=== PATIENT | male | born 1945 | race African-American/Black ===

== ENCOUNTER 2023-08-03 16:18 | Emergency (ER) | payer MEDICARE ==
--- NOTE | 2023-08-03 16:29 | ED Physician Documentation ---
PD HPI DYSPNEA - Stated complaint Stated Complaint: SOA - History obtained from History obtained from: Patient - History of Present Illness Timing - onset: How many days ago (2-3) Timing - onset during: Light activity Timing - duration: Days (2-3) Timing - details: Gradual onset, Still present Inciting event(s): URI (has had cough, congestion, malaise, and feeling of weakness for 2-3 days, with cough and wheezing much increased over baseline. Has home oxygen to use at night, and has been using it all day. Using MDI often but ran out of his ALbuterol. Had nebulizer at home in [place]. Is here visiting.). No: Out of meds Improved by: O2, Inhaler/neb (untilr an out of Albuterol.) Similar symptoms before: Diagnosis (has had COPD exac with URIs in the past.) Recently seen: Not recently seen Review of Systems Constitutional: reports: Chills, Myalgias. denies: Fever Nose: reports: Rhinorrhea / runny nose, Congestion Throat: denies: Sore throat Cardiac: denies: Chest pain / pressure, Palpitations Respiratory: reports: Dyspnea, Cough, Wheezing GI: denies: Abdominal Pain, Vomiting, Diarrhea Neurologic: reports: Generalized weakness. denies: Focal weakness, Altered mental status, Headache PD PAST MEDICAL HISTORY - Past Medical History Cardiovascular: Hypertension (usually controlled with his meds. Had not had meds this morning. ) Respiratory: COPD (night oxygen and PRN. 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 ) Neuro: None - Present Medications Home Medications: Ambulatory Orders Medication Instructions Recorded Confirmed Albuterol Sulf [Ventolin Hfa 2 - 3 puffs INH Q4HR PRN #1 each 08/03/23 Inhaler] Amoxicillin 500 mg PO TID #15 cap 08/03/23 Ipratropium [Atrovent] 2 puffs INH Q6H #12.9 gm 08/03/23 dexAMETHasone [Decadron] 4 mg PO DAILY #7 tablet 08/03/23 - Allergies Allergies/Adverse Reactions: Allergies Allergy/AdvReac Type Severity Reaction Status Date / Time No Known Drug Allergies Allergy Verified 08/03/23 16:36 PD ED PE NORMAL - Vitals Vital signs reviewed: Yes - General General: Alert and oriented X 3, Well developed/nourished, Other (having work of breathing and partial sentence dyspnea on first presentation/exam. Very noticable wheezing. ) - HEENT HEENT: Pharynx benign - Neck Neck: Supple, no meningeal sign, No adenopathy - Cardiac Cardiac: RRR, No murmur - Respiratory Respiratory: No: Clear bilaterally (no coarse sounds. Diffuse hholoexpiratory wheezing. ) - Abdomen Abdomen: Soft, Non tender - Extremities Extremities: No edema, No calf tenderness / cord - Neuro Neuro: No motor deficit, Normal speech Results - Vitals Vitals: Vital Signs - 24 hr 08/03/23 08/03/23 08/03/23 16:29 16:45 16:59 Temperature 36.1 C L Heart Rate 95 89 86 Respiratory 32 H 19 28 H Rate Blood Pressure 245/121 H O2 Saturation 95 95 If not protocol 2 2 : Oxygen Flow, liters/minute 08/03/23 08/03/23 08/03/23 17:11 17:36 18:44 Temperature Heart Rate 84 83 87 Respiratory 21 20 16 Rate Blood Pressure 173/80 H O2 Saturation 100 If not protocol 2 2 2 : Oxygen Flow, liters/minute 08/03/23 19:11 Temperature Heart Rate 82 Respiratory 26 H Rate Blood Pressure 181/88 H O2 Saturation 96 If not protocol : Oxygen Flow, liters/minute Oxygen O2 Source Nasal cannula Oxygen Flow Rate 2 - Labs Labs: Laboratory Tests 08/03/23 08/03/23 08/03/23 16:41 16:41 17:00 WBC 9.1 RBC 5.57 Hgb 14.9 Hct 46.5 MCV 83.5 MCH 26.8 L MCHC 32.0 RDW 15.7 H Plt Count 215 MPV 8.5 Neut # (Auto) 6.8 H Lymph # (Auto) 1.1 L [place] # (Auto) 1.1 H Eos # (Auto) 0.1 Baso # (Auto) 0.0 Absolute Nucleated RBC 0.00 Nucleated RBC % 0.0 Sodium Potassium Chloride Carbon Dioxide Anion Gap BUN Creatinine Estimated GFR (MDRD) Glucose Calcium Magnesium Total Bilirubin AST ALT Alkaline Phosphatase B-Natriuretic Peptide 79 Total Protein Albumin Globulin Albumin/Globulin Ratio Lipase Nasal Adenovirus (PCR) NOT DETECTED Nasal B. parapertussis DNA (PCR) NOT DETECTED Nasal Coronavir 229E PCR NOT DETECTED Nasal Coronavir HKU1 PCR NOT DETECTED Nasal Coronavir NL63 PCR NOT DETECTED Nasal Coronavir OC43 PCR DETECTED A Nasal Enterovir/Rhinovir PCR NOT DETECTED Nasal Influenza B PCR NOT DETECTED Nasal Influenza A PCR NOT DETECTED Nasal Parainfluen 1 PCR NOT DETECTED Nasal Parainfluen 2 PCR NOT DETECTED Nasal Parainfluen 3 PCR NOT DETECTED Nasal Parainfluen 4 PCR NOT DETECTED Nasal RSV (PCR) NOT DETECTED Nasal B.pertussis DNA PCR NOT DETECTED Nasal C.pneumoniae (PCR) NOT DETECTED Ahmet Human Metapneumo PCR NOT DETECTED Nasal M.pneumoniae (PCR) NOT DETECTED Nasal SARS-CoV-2 (PCR) NOT DETECTED 08/03/23 17:16 WBC RBC Hgb Hct MCV MCH MCHC RDW Plt Count MPV Neut # (Auto) Lymph # (Auto) [place] # (Auto) Eos # (Auto) Baso # (Auto) Absolute Nucleated RBC Nucleated RBC % Sodium 139 Potassium 4.0 Chloride 100 L Carbon Dioxide 32 Anion Gap 7.0 BUN 14 Creatinine 0.9 Estimated GFR (MDRD) 99 Glucose 104 Calcium 9.1 Magnesium 1.9 Total Bilirubin 0.9 AST 12 ALT 13 Alkaline Phosphatase 66 B-Natriuretic Peptide Total Protein 7.3 Albumin 4.3 Globulin 3.0 Albumin/Globulin Ratio 1.4 Lipase 17 Nasal Adenovirus (PCR) Nasal B. parapertussis DNA (PCR) Nasal Coronavir 229E PCR Nasal Coronavir HKU1 PCR Nasal Coronavir NL63 PCR Nasal Coronavir OC43 PCR Nasal Enterovir/Rhinovir PCR Nasal Influenza B PCR Nasal Influenza A PCR Nasal Parainfluen 1 PCR Nasal Parainfluen 2 PCR Nasal Parainfluen 3 PCR Nasal Parainfluen 4 PCR Nasal RSV (PCR) Nasal B.pertussis DNA PCR Nasal C.pneumoniae (PCR) Ahmet Human Metapneumo PCR Nasal M.pneumoniae (PCR) Nasal SARS-CoV-2 (PCR) - Rads (name of study) chest xray Relevant Findings:: Prelim report reviewed, EMP independent interpretation of test (no infiltrates nor acute process) PD Medical Decision Making - ED course Complexity details: re-evaluated patient (The patient is much more comfortable talking and breathing after 3 treatments. He still has audible wheezing and auscultated a wheezing. He states he wheezes often. He would like to try going home and will return if need be. He does have oxygen at home available.) Departure - Departure Disposition: Home, Self Care Clinical Impression: Dyspnea, Acute exacerbation of COPD with asthma, Other coronavirus as the cause of diseases classified elsewhere Condition: Stable Record reviewed to determine appropriate education?: Yes Instructions: ED URI Viral W Wheezing Prescriptions: Albuterol Sulf [Ventolin Hfa Inhaler] 2 - 3 puffs INH Q4HR PRN #1 each PRN Reason: Shortness Of Air/Wheezing Amoxicillin 500 mg PO TID #15 cap Ipratropium [Atrovent] 2 puffs INH Q6H #12.9 gm dexAMETHasone [Decadron] 4 mg PO DAILY #7 tablet Comments: Use the albuterol inhaler 2 to 3 puffs 4 times daily regularly for the next several days to week. You could add ipratropium inhaler as well for different effects to help with the wheezing. Decadron steroid daily for the next week. Your testing positive for a non-COVID coronavirus. This likely will cause a flareup of your COPD for the duration of the illness which commonly is 5 or 6 days. There may be some increased wheezing and coughing for a couple weeks after that as well. Even though this is a viral illness, given your underlying COPD there is still a setting for use of an antibiotic as there could be some flare of colonization of bacteria as well. I sent your prescriptions to the [facility] pharmacy in [place]. Return to the ER if worsening despite the above treatments. Continue with your available oxygen at home at 2 L nasal cannula. Follow-up with your primary care. Forms: PCP List Discharge Date/Time: 08/03/23 19:12
[2023-08-03] MEDS: IPRATROPIUM/ALBUTEROL 3 ML NEB INH STA ×2 (16:57→18:44)
[2023-08-03] MEDS: DEXAMETHASONE 10 MG/ML VIAL IVP STA (17:02)
[2023-08-03 17:05] LABS: BASOPHILS % (AUTO) 0.3 %; EOSINOPHILS # (AUTO) 0.1 10^3/uL (0.0-0.7); EOSINOPHILS % (AUTO) 1.3 %; HCT - HEMATOCRIT 46.5 % (42.0-52.0); HGB - HEMOGLOBIN 14.9 g/dL (14.0-18.0); LYMPHOCYTES # (AUTO) 1.1 10^3/uL (1.5-3.5); LYMPHOCYTES % (AUTO) 11.6 %; MEAN CORPUSCULAR HEMOGLOBIN 26.8 pg (27.0-31.0); MEAN CORPUSCULAR VOLUME 83.5 fL (80.0-94.0); MEAN PLATELET VOLUME 8.5 fL (7.4-11.4); MONOCYTES # (AUTO) 1.1 10^3/uL (0.0-1.0); MONOCYTES % (AUTO) 11.7 %; NEUTROPHILS # (AUTO) 6.8 10^3/uL (1.5-6.6); NEUTROPHILS % (AUTO) 74.8 %; PLT - PLATELET COUNT 215 10^3/uL (130-450); RED BLOOD COUNT 5.57 10^6/uL (4.70-6.10); RED CELL DISTRIBUTION WIDTH 15.7 % (12.0-15.0); WHITE BLOOD COUNT 9.1 x10^3/uL (4.8-10.8)
--- NOTE | 2023-08-03 17:10 | XRAY Report ---
PROCEDURE: Chest 1V INDICATIONS: chest pain TECHNIQUE: One view of the chest was acquired. COMPARISON: None. FINDINGS: Surgical changes and devices: None. Lungs and pleura: No pleural effusions or pneumothorax. Mild pulmonary vascular congestion. No defi nite focal infiltrate. Mediastinum: Mediastinal contours appear normal. Heart size is normal. Bones and chest wall: No suspicious bony lesions. Overlying soft tissues appear unremarkable. IMPRESSION: Mild congestion. No focal infiltrate, pleural effusion or pneumothorax. Reviewed by: Taran Knapp MD on 08/03/2023 5:09 PM PDT Approved by: Taran Knapp MD on 08/03/2023 5:09 PM PDT Station ID: [id number]
[2023-08-03 17:33] LABS: MAGNESIUM 1.9 mg/dL (1.7-2.3)
[2023-08-03] MEDS: ALBUTEROL NEB 2.5 MG/3 ML INH STA (17:34)
[2023-08-03 17:39] LABS: ALBUMIN 4.3 g/dL (3.2-5.5); ALBUMIN/GLOBULIN RATIO 1.4 (1.0-2.2); BILIRUBIN,TOTAL 0.9 mg/dL (0.2-1.0); CALCIUM 9.1 mg/dL (8.5-10.3); CREATININE 0.9 mg/dL (0.6-1.3); TOTAL PROTEIN 7.3 g/dL (6.4-8.9)
[2023-08-03 18:13] LABS: CORONAVIRUS 229E-RESP PCR NOT DETECTED; CORONAVIRUS HKU1-RESP PCR NOT DETECTED; CORONAVIRUS NL63-RESP PCR NOT DETECTED; CORONAVIRUS OC43-RESP PCR DETECTED; HUMAN METAPNEUMOVIRUS NOT DETECTED; INFLUENZA A- RESP PCR PANEL NOT DETECTED; RHINOVIRUS/ENTEROVIRUS NOT DETECTED; SARS-CoV-2 -RESP PCR PANEL NOT DETECTED
[2023-08-03 18:14] LABS: B. PARAPERTUSSIS- RESP PCR PAN NOT DETECTED; B. PERTUSSIS- RESP PCR PANEL NOT DETECTED; C. PNEUMONIAE- RESP PCR PANEL NOT DETECTED; INFLUENZA B - RESP PCR PANEL NOT DETECTED; M. PNEUMONIAE- RESP PCR PANEL NOT DETECTED; PARAINFLUENZA VIRUS 1 NOT DETECTED; PARAINFLUENZA VIRUS 2 NOT DETECTED; PARAINFLUENZA VIRUS 3 NOT DETECTED; PARAINFLUENZA VIRUS 4 NOT DETECTED; RSV- RESP PCR PANEL NOT DETECTED
[2023-08-03 19:15] VITALS: BP 181/88; O2SAT 96
== END 2023-08-03 19:12 | disposition home or self-care (01) ==
LOC: ED 16:18
DX: J44.1 Chronic obstructive pulmonary disease with (acute) exacerbation (principal); B34.2 Coronavirus infection, unspecified; I10 Essential (primary) hypertension; Z99.81 Dependence on supplemental oxygen; Z79.899 Other long term (current) drug therapy
CPT/HCPCS: 36415; 80053; 83690; 83735; 83880; 85025; 87633; 93005; 94640; 94664; 96374; 99284

== ENCOUNTER 2023-11-12 21:18 | Emergency (ER) | payer MEDICARE ==
--- NOTE | 2023-11-12 21:34 | ED Physician Documentation ---
PD HPI DYSPNEA - Stated complaint Stated Complaint: SOA - Chief complaint Chief Complaint: Resp - History obtained from History obtained from: Patient - Additional information Additional information: HPI from patient. Patient says he has COPD. Patient complains of dyspnea/shortness of breath worsening for the past few hours. Unclear as to when he started to feel worse than his baseline. For example, when asked, she felt at his baseline yesterday, he says he did not. When asked when his shortness of breath seem to become worse than usual, he says "I am always short of breath". Similar responses with coughing; patient says he has been having a dry/nonproductive cough worsening with past 3 hours, but again responds with "I am always coughing" (per patient) when asked when it for started. Patient has COPD. He was treated and released from this emergency department 3 months ago for similar presentation. I asked patient if he is currently taking steroids, and he says he takes prednisone. When I ask if he knows his dose, he tells me "check the chart". Utilizing [facility], the most recent prescription filled for prednisone that I see in these records is prednisone 20 mg tablets, 10 tablets for a 10-day supply that was filled on 10/24/2023. Patient denies chest pain, denies leg swelling. Review of Systems Constitutional: denies: Fever Cardiac: denies: Chest pain / pressure, Palpitations, Pedal edema Respiratory: reports: Dyspnea, Cough, Wheezing. denies: Hemoptysis GI: reports: Reviewed and negative Musculoskeletal: denies: Extremity swelling PD PAST MEDICAL HISTORY - Past Medical History Cardiovascular: Hypertension Respiratory: COPD Neuro: None - Past Surgical History Past Surgical History: Yes - Present Medications Home Medications: Ambulatory Orders Medication Instructions Recorded Confirmed Albuterol Sulf [Ventolin Hfa 2 - 3 puffs INH Q4HR PRN #1 each 08/03/23 Inhaler] Amoxicillin 500 mg PO TID #15 cap 08/03/23 Ipratropium [Atrovent] 2 puffs INH Q6H #12.9 gm 08/03/23 dexAMETHasone [Decadron] 4 mg PO DAILY #7 tablet 08/03/23 Albuterol Sulf [Ventolin Hfa 1 - 2 puffs INH Q4HR PRN #1 each 11/13/23 Inhaler] Azithromycin [Zithromax] 250 mg PO DAILY #4 tablet 11/13/23 predniSONE [Deltasone] 10 mg PO [id number] #42 tab 11/13/23 - Allergies Allergies/Adverse Reactions: Allergies Allergy/AdvReac Type Severity Reaction Status Date / Time No Known Drug Allergies Allergy Verified 11/12/23 21:22 - Social History Does the pt smoke?: No Smoking Status: Never smoker Does the pt drink ETOH?: No Does the pt have substance abuse?: No - Immunizations Immunizations are current?: Yes PD ED PE NORMAL - Vitals Vital signs reviewed: Yes - General General: Alert and oriented X 3, Well developed/nourished, Other (tachypneic, speaking in full sentences but becomes dyspneic towards the end of sentences. occasionally has to parse longer sentences) - Cardiac Cardiac: RRR, No murmur - Abdomen Abdomen: Soft, Non tender PD ED PE EXPANDED - Respiratory Respiratory: Wheezing (diffuse expiratory wheezing) Results - Vitals Vitals: Oxygen O2 Source Nasal cannula Oxygen Flow Rate 2 - Labs Labs: Laboratory Tests 11/12/23 11/12/23 11/12/23 21:35 21:35 21:35 WBC 8.5 RBC 5.72 Hgb 15.1 Hct 47.2 MCV 82.5 MCH 26.4 L MCHC 32.0 RDW 15.6 H Plt Count 275 MPV 8.6 Neut # (Auto) 5.1 Lymph # (Auto) 2.0 Jack # (Auto) 1.0 Eos # (Auto) 0.3 Baso # (Auto) 0.1 Absolute Nucleated RBC 0.00 Nucleated RBC % 0.0 Sodium 140 Potassium 4.0 Chloride 101 Carbon Dioxide 32 Anion Gap 7.0 BUN 17 Creatinine 0.9 Estimated GFR (MDRD) 99 Glucose 100 Calcium 9.9 Total Bilirubin 0.5 AST 13 ALT 10 Alkaline Phosphatase 73 B-Natriuretic Peptide 20 Total Protein 7.9 Albumin 4.8 Globulin 3.1 Albumin/Globulin Ratio 1.5 Lipase 41 Nasal Adenovirus (PCR) Nasal B. parapertussis DNA (PCR) Nasal Coronavir 229E PCR Nasal Coronavir HKU1 PCR Nasal Coronavir NL63 PCR Nasal Coronavir OC43 PCR Nasal Enterovir/Rhinovir PCR Nasal Influenza B PCR Nasal Influenza A PCR Nasal Parainfluen 1 PCR Nasal Parainfluen 2 PCR Nasal Parainfluen 3 PCR Nasal Parainfluen 4 PCR Nasal RSV (PCR) Nasal B.pertussis DNA PCR Nasal C.pneumoniae (PCR) Ahmet Human Metapneumo PCR Nasal M.pneumoniae (PCR) Nasal SARS-CoV-2 (PCR) 11/12/23 22:48 WBC RBC Hgb Hct MCV MCH MCHC RDW Plt Count MPV Neut # (Auto) Lymph # (Auto) Jack # (Auto) Eos # (Auto) Baso # (Auto) Absolute Nucleated RBC Nucleated RBC % Sodium Potassium Chloride Carbon Dioxide Anion Gap BUN Creatinine Estimated GFR (MDRD) Glucose Calcium Total Bilirubin AST ALT Alkaline Phosphatase B-Natriuretic Peptide Total Protein Albumin Globulin Albumin/Globulin Ratio Lipase Nasal Adenovirus (PCR) NOT DETECTED Nasal B. parapertussis DNA (PCR) NOT DETECTED Nasal Coronavir 229E PCR NOT DETECTED Nasal Coronavir HKU1 PCR NOT DETECTED Nasal Coronavir NL63 PCR NOT DETECTED Nasal Coronavir OC43 PCR NOT DETECTED Nasal Enterovir/Rhinovir PCR NOT DETECTED Nasal Influenza B PCR NOT DETECTED Nasal Influenza A PCR NOT DETECTED Nasal Parainfluen 1 PCR NOT DETECTED Nasal Parainfluen 2 PCR NOT DETECTED Nasal Parainfluen 3 PCR NOT DETECTED Nasal Parainfluen 4 PCR NOT DETECTED Nasal RSV (PCR) NOT DETECTED Nasal B.pertussis DNA PCR NOT DETECTED Nasal C.pneumoniae (PCR) NOT DETECTED Ahmet Human Metapneumo PCR NOT DETECTED Nasal M.pneumoniae (PCR) NOT DETECTED Nasal SARS-CoV-2 (PCR) NOT DETECTED - Rads (name of study) chest xray Relevant Findings:: Prelim report reviewed, See rad report PD Medical Decision Making - ED course Complexity details: reviewed old records (reviewed ED record from August 2023 visit ([facility])), reviewed results, re-evaluated patient, considered differential, d/w patient ED course: Unremarkable CBC, normal ER abdominal panel and BNP. CXR with mild right infrahilar opacity, will cover possible early pneumonia with azithromycin (500mg in ED, rx for 250 QD x 4 days). Respiratory PCR panel negative for viruses tested on this panel. Given 125mg IV solumedrol, duoneb and albuterol neb. On reevaluation, he reports feeling much improved and says he feels ready to go home. Reexamination of lungs (stethoscopic auscultation) reveals improved air movement and only end-expiratory wheezing bilaterally. Results d/w patient, return precautions reviewed. Also provided with prescription for albuterol MDI and 10-day tapering course of prednisone Departure - Departure Disposition: 01 Home, Self Care Clinical Impression: COPD exacerbation Condition: Good Instructions: ED COPD Flare Prescriptions: Albuterol Sulf [Ventolin Hfa Inhaler] 1 - 2 puffs INH Q4HR PRN #1 each PRN Reason: Shortness Of Air/Wheezing predniSONE [Deltasone] 10 mg PO [id number] #42 tab Azithromycin [Zithromax] 250 mg PO DAILY #4 tablet Comments: There were no abnormalities on tonight's blood tests. The nasal swab was negative for the viruses tested on this panel, including COVID and influenza. As we discussed, the only abnormality on tonight's workup was mild haziness in the right lung on the chest x-ray; one of the possible explanations for this could be early pneumonia and thus you were given the first dose of an antibiotic (azithromycin) in the emergency department, and I am providing you with prescriptions for the rest of a course of this antibiotic as well as prescriptions for an albuterol inhaler and a 10-day tapering course of prednisone (steroid). Discharge Date/Time: 11/13/23 00:51
[2023-11-12 21:50] LABS: BASOPHILS # (AUTO) 0.1 10^3/uL (0.0-0.1); BASOPHILS % (AUTO) 0.6 %; EOSINOPHILS # (AUTO) 0.3 10^3/uL (0.0-0.7); EOSINOPHILS % (AUTO) 3.5 %; HCT - HEMATOCRIT 47.2 % (42.0-52.0); HGB - HEMOGLOBIN 15.1 g/dL (14.0-18.0); LYMPHOCYTES % (AUTO) 23.3 %; MEAN CORPUSCULAR HEMOGLOBIN 26.4 pg (27.0-31.0); MEAN CORPUSCULAR VOLUME 82.5 fL (80.0-94.0); MEAN PLATELET VOLUME 8.6 fL (7.4-11.4); MONOCYTES % (AUTO) 12.1 %; NEUTROPHILS # (AUTO) 5.1 10^3/uL (1.5-6.6); PLT - PLATELET COUNT 275 10^3/uL (130-450); RED BLOOD COUNT 5.72 10^6/uL (4.70-6.10); RED CELL DISTRIBUTION WIDTH 15.6 % (12.0-15.0); WHITE BLOOD COUNT 8.5 x10^3/uL (4.8-10.8)
[2023-11-12] MEDS: ALBUTEROL NEB 2.5 MG/3 ML INH STA (22:09)
[2023-11-12] MEDS: IPRATROPIUM/ALBUTEROL 3 ML NEB INH STA (22:09)
[2023-11-12 22:11] LABS: ALBUMIN 4.8 g/dL (3.2-5.5); ALBUMIN/GLOBULIN RATIO 1.5 (1.0-2.2); BILIRUBIN,TOTAL 0.5 mg/dL (0.2-1.0); CALCIUM 9.9 mg/dL (8.5-10.3); CREATININE 0.9 mg/dL (0.6-1.3); TOTAL PROTEIN 7.9 g/dL (6.4-8.9)
--- NOTE | 2023-11-12 22:18 | XRAY Report ---
PROCEDURE: Chest 1V INDICATIONS: soa TECHNIQUE: One view of the chest was acquired. COMPARISON: 08/03/2023 FINDINGS: Surgical changes and devices: None. Lungs and pleura: Mild opacity is seen in the right infrahilar region. No drainable effusions. Mediastinum: Heart size is within normal limits Bones and chest wall: Degenerative changes IMPRESSION: Mild right infrahilar opacity. No drainable effusions. This could be infectious/inflammatory. Conside r future imaging surveillance to assess for resolution. Reviewed by: Andre Valles MD on 11/12/2023 10:17 PM PDT Approved by: Andre Valles MD on 11/12/2023 10:17 PM PDT Station ID: [id number]
[2023-11-12] MEDS: methylPREDNISolone SUCCINATE 125 MG/2 ML VIAL IVP STA (22:22)
[2023-11-13 00:05] LABS: B. PARAPERTUSSIS- RESP PCR PAN NOT DETECTED; B. PERTUSSIS- RESP PCR PANEL NOT DETECTED; C. PNEUMONIAE- RESP PCR PANEL NOT DETECTED; CORONAVIRUS 229E-RESP PCR NOT DETECTED; CORONAVIRUS HKU1-RESP PCR NOT DETECTED; CORONAVIRUS NL63-RESP PCR NOT DETECTED; CORONAVIRUS OC43-RESP PCR NOT DETECTED; HUMAN METAPNEUMOVIRUS NOT DETECTED; INFLUENZA A- RESP PCR PANEL NOT DETECTED; INFLUENZA B - RESP PCR PANEL NOT DETECTED; M. PNEUMONIAE- RESP PCR PANEL NOT DETECTED; PARAINFLUENZA VIRUS 1 NOT DETECTED; PARAINFLUENZA VIRUS 2 NOT DETECTED; PARAINFLUENZA VIRUS 3 NOT DETECTED; PARAINFLUENZA VIRUS 4 NOT DETECTED; RHINOVIRUS/ENTEROVIRUS NOT DETECTED; RSV- RESP PCR PANEL NOT DETECTED; SARS-CoV-2 -RESP PCR PANEL NOT DETECTED
[2023-11-13] MEDS: AZITHROMYCIN 250 MG TABLET PO STA (00:22)
[2023-11-13 00:37] VITALS: BP 152/80; O2SAT 96
== END 2023-11-13 00:51 | disposition home or self-care (01) ==
LOC: ED 21:18
DX: J44.1 Chronic obstructive pulmonary disease with (acute) exacerbation (principal)
CPT/HCPCS: 36415; 71045; 80053; 83690; 83880; 85025; 87633; 94640; 94664; 96374; 99284; A9270